=== PATIENT | male | born 1940 | race Caucasian/White ===

== ENCOUNTER 2016-10-25 11:04 | Emergency (ER) | payer MEDICARE, OTHER, MEDICAID | END 2016-10-25 16:34 | disposition home or self-care (01) | LOC: ER 11:04 | DX: J44.9 Chronic obstructive pulmonary disease, unspecified (principal); E11.9 Type 2 diabetes mellitus without complications; Z79.4 Long term (current) use of insulin; I10 Essential (primary) hypertension; G20 Parkinson's disease | CPT/HCPCS: 71020; 82947; 87804; 87880 ==